=== PATIENT | female | born 1995 | race Caucasian/White ===

== ENCOUNTER 2021-01-24 14:24 | Emergency (ER) | payer MEDICAID ==
[~2021-01-24] VITALS: Ht 172.7 cm; Wt 68.0 kg
[2021-01-24] MEDS ORDERED: MORPHINE SULFATE 4 MG/ML CPJ (NOT FOR IM USE) IV ONE (15:30)
[2021-01-24 15:31] LABS: CLARITY URINE CLOUDY (CLEAR); COLOR URINE YELLOW (YELLOW); KETONES URINE TRACE (NEGATIVE); LEUKOCYTE ESTERASE URINE NEGATIVE (NEGATIVE); NITRITE URINE NEGATIVE (NEGATIVE); OCCULT BLOOD URINE 2+ (NEGATIVE); PROTEIN URINE 1+ (NEGATIVE); SPECIFIC GRAVITY URINE 1.023 (1.005-1.030)
[2021-01-24 15:43] LABS: METHADONE URINE SCREEN NEGATIVE (NEGATIVE); OPIATES URINE SCREEN NEGATIVE (NEGATIVE); PHENCYCLIDINE URINE SCREEN NEGATIVE (NEGATIVE)
[2021-01-24 15:44] LABS: *AMPHETAMINES SCREEN URINE NEGATIVE (NEGATIVE); *BARBITURATES SCREEN URINE NEGATIVE (NEGATIVE); *BENZODIAZEPINES SCREEN URINE NEGATIVE (NEGATIVE); *COCAINE SCREEN URINE NEGATIVE (NEGATIVE); CANNABINOID URINE SCREEN NEGATIVE (NEGATIVE)
[2021-01-24 15:47] LABS: BASOPHILS % 0.1 % (0.0-2.0); CHLORIDE 110 mEq/L (98-107); EOSINOPHILS % 0.5 % (0.0-5.0); HEMATOCRIT. 36.7 % (36.0-48.0); HEMOGLOBIN. 12.2 g/dL (12.0-16.0); LYMPHOCYTES % 9.9 % (20.0-50.0); MEAN CORPUSCULAR VOLUME 90.2 fL (81.0-99.0); MEAN PLATELET VOLUME 9.1 fl (7.4-10.4); MONOCYTES % 6.5 % (2.0-8.0); PLATELET 291 x1000/uL (130-400); RED BLOOD CELL COUNT 4.07 mill/uL (4.2-5.4); RED CELL DISTRIBUTION WIDTH 12.6 % (11.6-14.6)
[2021-01-24 15:52] LABS: ETHANOL BLOOD < 10 mg/dL
[2021-01-24 16:06] LABS: HCG SCREEN NEGATIVE
[2021-01-24 18:55] VITALS: BP 110/60
[2021-01-24] MEDS ORDERED: IOHEXOL-300 100 ML BOTTLE ONE (21:31)
== END 2021-01-24 19:11 | disposition home or self-care (01) ==
LOC: ER 14:24
DX: S30.811A Abrasion of abdominal wall, initial encounter (principal); R11.0 Nausea; M25.561 Pain in right knee; M25.552 Pain in left hip; V29.9XXA Motorcycle rider (driver) (passenger) injured in unspecified traffic accident, initial encounter; Y93.89 Activity, other specified; Y92.89 Other specified places as the place of occurrence of the external cause; Y99.8 Other external cause status
CPT/HCPCS: 36415; 70450; 71045; 73080; 73130; 73562; 74177; 80053; 80305; 80320; 81003; 81025; 83605; 83690; 83880; 84443; 84484; 84703; 85025; 86850; 86900; 86901; 93005; 96374; 99285; J2270; Q9967; Z7610; G0480

== ENCOUNTER 2021-02-05 09:53 | Emergency (ER) | payer MEDICAID ==
[~2021-02-05] VITALS: Ht 170.2 cm; Wt 69.0 kg
[2021-02-05] MEDS ORDERED: CEPH500C2 MT (10:21)
[2021-02-05] MEDS ORDERED: IBUP-2029 MT (10:21)
[2021-02-05] MEDS ORDERED: IBUPROFEN 600MG TABLET PO ONE (10:30)
[2021-02-05 10:31] VITALS: BP 118/66
== END 2021-02-05 10:32 | disposition home or self-care (01) ==
LOC: ER 10:27
DX: L02.211 Cutaneous abscess of abdominal wall (principal); Z79.899 Other long term (current) drug therapy
CPT/HCPCS: 99283

== ENCOUNTER 2021-03-27 20:32 | Emergency (ER) | payer MEDICAID ==
[~2021-03-27] VITALS: Ht 170.2 cm; Wt 66.0 kg
[~2021-03-27 20:32] MED LIST: CEPH500C2 MT; IBUP-2029 MT
[2021-03-27] MEDS ORDERED: SULF1TAB48 PO (21:59)
[2021-03-27] MEDS ORDERED: CEPH500T PO (21:59)
[2021-03-27 22:12] VITALS: BP 135/87
== END 2021-03-27 22:13 | disposition home or self-care (01) ==
LOC: ER 20:32
DX: L03.311 Cellulitis of abdominal wall (principal); Z87.828 Personal history of other (healed) physical injury and trauma
CPT/HCPCS: 99284

== ENCOUNTER 2022-04-07 08:21 | Emergency (ER) | payer OTHER, MEDICAID ==
[~2022-04-07] VITALS: Ht 170.2 cm; Wt 78.0 kg
[~2022-04-07 08:21] MED LIST changes: +CEPH500T PO; +SULF1TAB48 PO
[2022-04-07 08:24] VITALS: BP 130/79
[2022-04-07] MEDS ORDERED: SULF1TAB48 MT (09:58)
[2022-04-07] MEDS ORDERED: CEPH250C2 MT (09:58)
== END 2022-04-07 10:14 | disposition home or self-care (01) ==
LOC: ER 08:43
DX: L03.116 Cellulitis of left lower limb (principal)
CPT/HCPCS: 99283